=== PATIENT | female | born 1945 | race Caucasian/White ===

== ENCOUNTER 2021-06-12 17:04 | Emergency (ER) | payer OTHER ==
[~2021-06-12] VITALS: Ht 157.5 cm; Wt 81.2 kg
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
--- NOTE | 2021-06-12 17:25 | NUR ---
SEEN BY DR STEWART AT BEDSIDE
--- NOTE | 2021-06-12 17:55 | NUR ---
XRAY DONE AT BEDSIDE.
--- NOTE | 2021-06-12 18:40 | NUR ---
KRYSTAL WRAP APPLIED TO AFFECTED AREA
--- NOTE | 2021-06-12 18:47 | NUR ---
Patient discharged to home in stable condition. Written and verbal after care instructions given. Patient verbalizes understanding of instruction.
[2021-06-12 18:48] VITALS: BP 117/74
== END 2021-06-12 18:49 | disposition home or self-care (01) ==
LOC: ER 17:04
DX: S80.01XA Contusion of right knee, initial encounter (principal); S50.01XA Contusion of right elbow, initial encounter; I10 Essential (primary) hypertension; E78.5 Hyperlipidemia, unspecified; Z60.2 Problems related to living alone; V89.2XXA Person injured in unspecified motor-vehicle accident, traffic, initial encounter; Y93.89 Activity, other specified; Y92.89 Other specified places as the place of occurrence of the external cause; Y99.8 Other external cause status
CPT/HCPCS: 73080-TC; 73564-TC